=== PATIENT | female | born 1965 | race Two or more races ===

== ENCOUNTER 2022-01-02 07:10 | Inpatient (IN) | payer MEDICAID ==
[2021-12-28 09:42] LABS: Basophils # (auto) 0.1 10 ^3/uL (0-0.2); Eosinophils # (auto) 0.1 10 ^3/uL (0-0.8); Eosinophils % (auto) 1.1 % (0.0-7.0); Hematocrit 38.6 % (36.0-46.0); Hemoglobin 12.7 g/dL (12.2-16.2); Lymphocytes % (auto) 24.6 % (10.0-50.0); Mean Corpuscular Hemoglobin 30.7 pg (28.0-32.0); Mean Corpuscular Hgb Conc. 32.8 g/dL (32.0-36.0); Mean Corpuscular Volume 93.7 fL (80.0-100.0); Monocytes # (auto) 0.5 10 ^3/uL (0-1.3); Monocytes % (auto) 5.9 % (0.0-12.0); Neutrophils # (auto) 5.4 10 ^3/uL (1.6-8.6); Neutrophils % (auto) 67.4 % (37.0-80.0); Nucleated Red Blood Cells % 0.2 %; Red Blood Cells 4.12 10^6/uL (4.0-5.20); Red Cell Distribution Width 15.5 % (11.8-14.3)
[2021-12-28 09:53] LABS: Urine Bacteria FEW /hpf (None Seen); Urine Blood Negative /uL (Negative); Urine Mucus FEW (None Seen); Urine Specific Gravity 1.025 (1.001-1.035); Urine WBC 2 /hpf (0 - 5)
[2021-12-28 10:09] LABS: Albumin 3.7 g/dL (3.4-5.0); Calcium 8.5 mg/dL (8.5-10.1); Potassium 3.5 mmol/L (3.5-5.1)
[2021-12-28 10:12] LABS: INR 0.97 (0.9-1.15)
[2021-12-28 10:13] LABS: Bilirubin, Total 0.4 mg/dL (0.2-1.0); Total Protein 7.5 g/dL (6.4-8.2)
[~2022-01-02] VITALS: Ht 160 cm; Wt 72.5 kg
[~2022-01-02 07:10] MED LIST: ADAL40KI2 SC; FOLITAB22 OR; HYDR-4188 OR; HYDR1TAB97 PO; METH2.5T PO; PRE5T PO
[2022-01-02] MEDS ORDERED: ceFAZolin 1GM/50ML 100 ML IV ONE (07:15)
[2022-01-02] MEDS ORDERED: MIDAZOLAM HCL 2MG/2ML 2ml VIAL (1mg/ml) ONE (09:19)
[2022-01-02] MEDS ORDERED: MEPERIDINE HCL (50 MG/ML) 1 ML VIAL ONE (09:19)
[2022-01-02] MEDS ORDERED: fentaNYL CITRATE 100 MCG/2 ML VL ONE (09:19)
[2022-01-02] MEDS ORDERED: DexAMETHasone SOD PHOS 10MG/1ML VIAL INJ ONE (09:20)
[2022-01-02] MEDS ORDERED: ONDANSETRON HCL 4 MG/2 ML VIAL IV PRN (10:15)
[2022-01-02] MEDS ORDERED: ePHEDrine SULFATE 50 MG/ML AMP IV PRN (10:15)
[2022-01-02] MEDS ORDERED: LABETALOL HCL 5 MG/ML 4ML SYRINGE IV PRN (10:15)
[2022-01-02] MEDS ORDERED: MORPHINE SULFATE 4 MG/ML SYR/VIAL IV PRN (10:15)
[2022-01-02] MEDS ORDERED: MIDAZOLAM HCL 2MG/2ML 2ml VIAL (1mg/ml) IV PRN (10:15)
[2022-01-02] MEDS ORDERED: SUGAMMADEX 200mg/2ml Vial (100MG/ML) IV ONE (10:30)
[2022-01-02] MEDS: HYDROmorphone HCL 2 MG/ML VL/or syr IV PRN ×4 (11:32→12:37)
[2022-01-02] MEDS ORDERED: NITROGLYCERIN 0.4 MG SL TAB SL PRN (11:45)
[2022-01-02] MEDS ORDERED: MORPHINE SULFATE INJ 2 MG/ml SYRG IV PRN ×2 (11:45→15:45)
[2022-01-02] MEDS ORDERED: HYDROmorphone HCL 2 MG/ML VL/or syr IV ONE (12:30)
[2022-01-02] MEDS: D5W/SOD CHL 0.45%/KCL 20MEQ 1,000 ML IV SCH (12:46)
[2022-01-02] MEDS ORDERED: ceFAZolin 1GM/50ML 50 ML IV SCH (14:00)
[2022-01-02] MEDS ORDERED: HYDROcodone-ACET 5/325MG TAB PO PRN (15:45)
[2022-01-02] MEDS ORDERED: ETOMIDATE (2MG/ML) 20ML VIAL IV ONE (16:03)
[2022-01-02] MEDS ORDERED: SUCCINYLCHOLINE CHLORIDE 20 MG/ML 10ML VIAL IV ONE (16:03)
[2022-01-02] MEDS ORDERED: PHENYLEPHRINE HCL 10 MG/ML VL IV ONE (16:03)
[2022-01-02] MEDS: ONDANSETRON HCL 4 MG/2 ML VIAL IV PRN (18:35)
[2022-01-02] MEDS: ceFAZolin 1GM/50ML 50 ML IV SCH (18:35)
[2022-01-02 22:00] VITALS: BP 137/60
[2022-01-02] MEDS: hydrOXYchloroQUINE SULFATE 200 MG TAB PO SCH (22:50)
[2022-01-03] MEDS: ONDANSETRON HCL 4 MG/2 ML VIAL IV PRN (00:28)
[2022-01-03] MEDS: D5W/SOD CHL 0.45%/KCL 20MEQ 1,000 ML IV SCH ×2 (00:29→13:35)
[2022-01-03] MEDS: ceFAZolin 1GM/50ML 50 ML IV SCH ×3 (03:00→17:43)
[2022-01-03 05:00] VITALS: BP 132/67
[2022-01-03 07:25] LABS: Basophils # (auto) 0 10 ^3/uL (0-0.2); Basophils % (auto) 0.5 % (0.0-2.0); Eosinophils # (auto) 0 10 ^3/uL (0-0.8); Hematocrit 36.2 % (36.0-46.0); Lymphocytes # (auto) 1.3 10 ^3/uL (0.4-5.4); Mean Corpuscular Hemoglobin 30.6 pg (28.0-32.0); Mean Corpuscular Hgb Conc. 33.1 g/dL (32.0-36.0); Mean Corpuscular Volume 92.5 fL (80.0-100.0); Monocytes # (auto) 0.7 10 ^3/uL (0-1.3); Monocytes % (auto) 8.1 % (0.0-12.0); Neutrophils # (auto) 6.4 10 ^3/uL (1.6-8.6); Neutrophils % (auto) 75.4 % (37.0-80.0); Red Blood Cells 3.92 10^6/uL (4.0-5.20); Red Cell Distribution Width 15.3 % (11.8-14.3); White Blood Cell 8.4 10^3/uL (4.4-10.8)
[2022-01-03] MEDS: predniSONE 5 MG TAB PO SCH (09:12)
[2022-01-03] MEDS: hydrOXYchloroQUINE SULFATE 200 MG TAB PO SCH ×2 (09:12→21:35)
[2022-01-03] MEDS: PANTOPRAZOLE 40 MG/10 ML VIAL INJ IV SCH (09:12)
[2022-01-03 09:22] VITALS: BP 123/64
[2022-01-03] MEDS ORDERED: FOLIC ACID 1 MG TAB PO ONE (12:15)
[2022-01-03 12:43] VITALS: BP 130/62
[2022-01-03 16:45] VITALS: BP 143/71
[2022-01-03 20:10] VITALS: BP 164/79
[2022-01-03 22:00] VITALS: BP 164/74
[2022-01-04] MEDS: D5W/SOD CHL 0.45%/KCL 20MEQ 1,000 ML IV SCH ×2 (01:35→14:55)
[2022-01-04] MEDS: ceFAZolin 1GM/50ML 50 ML IV SCH ×3 (01:58→17:28)
[2022-01-04 05:00] VITALS: BP 126/63
[2022-01-04 07:42] LABS: Basophils # (auto) 0 10 ^3/uL (0-0.2); Basophils % (auto) 0.4 % (0.0-2.0); Eosinophils # (auto) 0.1 10 ^3/uL (0-0.8); Eosinophils % (auto) 0.8 % (0.0-7.0); Hematocrit 37.2 % (36.0-46.0); Hemoglobin 12.1 g/dL (12.2-16.2); Lymphocytes # (auto) 2.8 10 ^3/uL (0.4-5.4); Lymphocytes % (auto) 37.8 % (10.0-50.0); Mean Corpuscular Hemoglobin 30.4 pg (28.0-32.0); Mean Corpuscular Hgb Conc. 32.5 g/dL (32.0-36.0); Mean Corpuscular Volume 93.5 fL (80.0-100.0); Monocytes # (auto) 0.7 10 ^3/uL (0-1.3); Neutrophils # (auto) 3.9 10 ^3/uL (1.6-8.6); Nucleated Red Blood Cells % 0.1 %; Red Blood Cells 3.98 10^6/uL (4.0-5.20); Red Cell Distribution Width 15.4 % (11.8-14.3); White Blood Cell 7.4 10^3/uL (4.4-10.8)
[2022-01-04 07:47] LABS: Albumin 3.4 g/dL (3.4-5.0); Calcium 8.6 mg/dL (8.5-10.1); Potassium 3.8 mmol/L (3.5-5.1)
[2022-01-04 07:50] LABS: BUN/Creatinine Ratio 11.5; Bilirubin, Total 0.4 mg/dL (0.2-1.0); Total Protein 6.5 g/dL (6.4-8.2)
[2022-01-04 08:00] VITALS: BP 137/70
[2022-01-04 09:00] VITALS: BP 137/70
[2022-01-04] MEDS: predniSONE 5 MG TAB PO SCH (09:39)
[2022-01-04] MEDS: hydrOXYchloroQUINE SULFATE 200 MG TAB PO SCH (09:40)
[2022-01-04] MEDS: PANTOPRAZOLE 40 MG/10 ML VIAL INJ IV SCH (09:42)
[2022-01-04] MEDS ORDERED: FOLIC ACID 1 MG TAB PO SCH (10:00)
[2022-01-04 13:00] VITALS: BP 130/74
[2022-01-04 16:58] VITALS: BP 132/66
== END 2022-01-04 19:52 | disposition home or self-care (01) | DRG 263 ==
LOC: SUR 07:10 → OVERFLOW 11:46 → WEST WING 16:54
PROVIDERS: ADMIT Internal Medicine; ATTEND Internal Medicine
PROC: 0FT44ZZ Resection of Gallbladder, Percutaneous Endoscopic Approach (ICD-10-PCS; principal; 2022-01-02 09:25)
DX: K80.10 Calculus of gallbladder with chronic cholecystitis without obstruction (principal); M06.9 Rheumatoid arthritis, unspecified; Z20.822 Contact with and (suspected) exposure to COVID-19
CPT/HCPCS: 36415; 80053; 81001; 82247; 85025; 85610; 85730; 86850; 86900; 86901; A4565; C9113; G0378; J0330; J0690; J1100; J2250; J2405